=== PATIENT | female | born 1990 ===

== ENCOUNTER 2018-07-14 19:52 | Emergency (ER) | payer OTHER ==
[2018-07-14 20:29] VITALS: RESP 18
--- NOTE | 2018-07-14 20:35 | C.PDOC ---
History Of Present Illness 27 year old female, , approximately 10 weeks presents to the ED c/o nausea and vomiting for the past 2 weeks. Patient reports sudden onset vagina; spotting today. Patient's LMP was 05/22/18. Patient reports she saw her OBGYN was examined and told she was 10 weeks but never had a prior US done, patient also states her OBGYN advised her to go to the ED for vomiting but was never prescribed medications. Patient denies fever, chills, headache, abdominal pain, vaginal discharge, rash, weakness. Time Seen by Provider: 07/14/18 20:21 Chief Complaint (Nursing): Abdominal Pain History Per: Patient History/Exam Limitations: no limitations Onset/Duration Of Symptoms: Days Current Symptoms Are (Timing): Still Present Quality Of Discomfort: "Pain" Associated Symptoms: Nausea, Vomiting Recent travel outside of the [place]: No Additional History Per: Patient Abnormal Vaginal Bleeding: Yes Last Menstral Period: 05/22/18 : 3 Para: 2 Past Medical History Reviewed: Historical Data, Nursing Documentation, Vital Signs Vital Signs: Last Vital Signs Temp 98.3 F 07/14/18 20:01 Pulse 87 07/14/18 20:01 Resp 18 07/14/18 20:01 BP 118/84 07/14/18 20:01 Pulse Ox 100 07/14/18 20:01 Primary Care Provider: Non [facility] Provider, - Medical History PMH: No Chronic Diseases Denies: Chronic Kidney Disease Surgical History: No Surg Hx Family History: States: Unknown Family Hx - Social History Hx Alcohol Use: No Hx Substance Use: No - Immunization History Hx Tetanus Toxoid Vaccination: No Hx Influenza Vaccination: No Hx Pneumococcal Vaccination: No Review Of Systems Constitutional: Negative for: Fever, Chills Cardiovascular: Negative for: Chest Pain Respiratory: Negative for: Shortness of Breath Gastrointestinal: Positive for: Nausea, Vomiting. Negative for: Abdominal Pain Genitourinary: Positive for: Vaginal Bleeding. Negative for: Dysuria, Hematuria Musculoskeletal: Negative for: Back Pain Skin: Negative for: Rash Neurological: Negative for: Weakness, Numbness, Headache Physical Exam - Physical Exam Appears: Non-toxic, No Acute Distress Skin: Normal Color, Warm, Dry Head: Atraumatic, Normacephalic Eye(s): bilateral: Normal Inspection Oral Mucosa: Moist Neck: Normal ROM, Supple Chest: Symmetrical Cardiovascular: Rhythm Regular Respiratory: Normal Breath Sounds, No Rales, No Rhonchi, No Wheezing Gastrointestinal/Abdominal: Soft, No Tenderness, No Guarding, No Rebound Back: No CVA Tenderness Extremity: Normal ROM, No Tenderness, No Swelling Neurological/Psych: Oriented x3, Normal Speech, Normal Cognition Gait: Steady ED Course And Treatment - Laboratory Results Result Diagrams: 07/14/18 20:39 07/14/18 20:39 O2 Sat by Pulse Oximetry: 100 (ON RA) Pulse Ox Interpretation: Normal - CT Scan/US Pelvic US Other Rad Studies (CT/US): Read By Radiologist, Radiology Report Reviewed CT/US Interpretation: EXAM: US Obstetrical, Complete <14 weeks. CLINICAL HIST ORY: Pain, bleeding r/o ectopic. TECHNIQUE: Transvaginal and transabdominal imaging of the maternal pelvis and a <14 week gestation with image documentation. COMPARISON: None provided. FINDINGS: GESTATION: A single early living IUP is identified estimated to be 7 weeks and 6 days in age, +/- 4 days. cardiac activity documented being at a rate of 150 BPM. UTERUS: Unremarkable. No myometrial mass. CERVIX: Closed. Unremarkable. OVARIES: Unremarkable. No mass. FREE FLUID: No free fluid. IMPRESSION: Single living intrauterine . No acute abnormality. . Electronically signed on July 14, 2018 11:15:51 PM EDT by: Juice Chamberlain M.D., M.B.A., Certified By [employer]. Fellowship Trained MRI and CT Specialist Progress - Re-Evaluation Re-evaluation Note: 07/14/18 23:11 FEELS BETTER. +UO, TOLERATING PO. US +IUP @ 7W6D - Data Reviewed Data Reviewed: Lab, Diagnostic imaging, Old records Medical Decision Making Medical Decision Making: Plan: * Labs * IV fluids * Zofran 4 mg IVP * UA * Pelvic US Disposition Counseled Patient/Family Regarding: Studies Performed, Diagnosis, Need For Followup, Rx Given - Disposition Referrals: [employer] [facility] [Outside] [facility] [Other] Disposition: HOME/ ROUTINE Disposition Time: 23:18 Condition: IMPROVED Prescriptions: Ondansetron ODT [Zofran ODT] 4 mg PO TID PRN #12 odt PRN Reason: Nausea/Vomiting Instructions: Threatened Miscarriage (DC), Nausea and Vomiting of (DC) Forms: [employer] (Stateless) - Clinical Impression Clinical Impression: Vomiting , Threatened - Scribe Statement The provider has reviewed the documentation as recorded by the Scribe Zhao Ruano All medical record entries made by the Scribe were at my direction and personally dictated by me. I have reviewed the chart and agree that the record accurately reflects my personal performance of the history, physical exam, medical decision making, and the department course for this patient. I have also personally directed, reviewed, and agree with the discharge instructions and disposition.
[2018-07-14] MEDS ORDERED: Sodium Chloride 0.9% 1,000 ML IV ONE (20:41)
[2018-07-14 20:44] LABS: BASO % 0.3 % (0.0-2.0); EOS # 0.1 K/uL (0.0-0.7); EOS % 0.7 % (0.0-4.0); HEMOGLOBIN 12.4 g/dL (11.0-16.0); LYMPH # 2.8 K/uL (1.0-4.3); LYMPH % 22.6 % (20.0-40.0); MEAN CELL VOLUME 83.8 fL (81.0-99.0); MEAN CORPUSCULAR HEMOGLOBIN 27.4 pg (27.0-31.0); MEAN CORPUSCULAR HGB CONC 32.7 g/dL (33.0-37.0); MEAN PLATELET VOLUME 9.7 fL (7.2-11.7); MONO % 8.3 % (0.0-10.0); NEUT # 8.3 K/uL (1.8-7.0); NEUT % 68.1 % (50.0-75.0); RBC 4.54 Mil/uL (3.80-5.20); RED CELL DISTRIBUTION WIDTH 14.2 % (11.5-14.5); WHITE BLOOD COUNT 12.2 K/uL (4.8-10.8)
[2018-07-14 20:48] LABS: SQUAMOUS EPITHIAL 3 /hpf (0-5); URINE BILIRUBIN NEGATIVE (NEGATIVE); URINE BLOOD NEGATIVE (NEGATIVE); URINE CLARITY Clear (Clear); URINE COLOR Straw (YELLOW); URINE GLUCOSE (UA) NORMAL (Normal); URINE LEUKOCYTE ESTERASE NEG Leu/uL (Negative); URINE PROTEIN NEGATIVE (NEGATIVE); URINE UROBILINOGEN NORMAL mg/dL (0.2-1.0)
[2018-07-14 21:03] LABS: ALB/GLOB RATIO 1.3 (1.0-2.1); ALBUMIN 4.3 g/dL (3.5-5.0); ALT/SGPT 43 U/L (9-52); AST/SGOT 40 U/L (14-36); BLOOD UREA NITROGEN 14 mg/dL (7-17); GFR NON-AFRICAN AMERICAN > 60
[2018-07-14 23:34] VITALS: BP 124/72; PULSE 79; TEMP 98.1; O2SAT 98
--- NOTE | 2018-07-15 11:39 | US ---
Date of service: 07/14/2018 Indication: PAIN BLEEDING RO ECTOPIC Comparison: None available Technique: Transabdominal pelvic ultrasound Findings: The uterus measures approximately 11.7 x 6.5 x 6.4 cm. Anteverted. Cervix length measures approximately 3.1 cm. There is a single intrauterine fetus present. 3 mm yolk sac. The gestational sac measures 3.2 and is compatible with a gestational age of 8 weeks 1 day. The crown-rump length measures 1.2 cm and is compatible with a gestational age of 7 weeks 3 days. There is heart motion which measured 150 BPM. The right ovary measures 3.2 x 2.2 x 2.1 cm. The left ovary measures 3.0 x 2.2 x 3.1 cm. Blood flow was demonstrated to both ovaries. Impression: Live single intrauterine with estimated gestational age 8 weeks 1 day by gestational sac calculation and 7 weeks 3 days by crown-rump length calculation. heart rate 150 bpm. Advise an anomaly screen at 16-18 weeks gestational age. Preliminary impression was provided by [employer].
== END 2018-07-14 23:34 | disposition home or self-care (01) ==
LOC: C.ER 19:52
DX: O20.0 Threatened abortion (principal); O21.9 Vomiting of pregnancy, unspecified; Z3A.08 8 weeks gestation of pregnancy
CPT/HCPCS: 76801; 80053; 81001; 84702; 85025; 86850; 86900; 96361; 96374; 99283; J2405; J7030